=== PATIENT | male | born 1990 | race Caucasian/White ===

== ENCOUNTER 2022-03-15 06:45 | Emergency (ER) | payer BC ==
[~2022-03-15] VITALS: Ht 182.9 cm; Wt 77.7 kg
[2022-03-15] MEDS ORDERED: ONDANSETRON 4MG 2ML VIAL IV ONE (07:40)
[2022-03-15] MEDS ORDERED: PANTOPRAZOLE 40MG VIAL IV ONE (07:40)
[2022-03-15] MEDS ORDERED: NS 1,000 ML IV ONE (07:40)
[2022-03-15 08:13] LABS: BASO # 0.1 10^3/uL (0.0-0.2); BASO % 0.4 % (0.0-1.0); EOS # 0.1 10^3/uL (0.0-0.5); EOS % 0.8 % (0.0-3.0); HEMATOCRIT 42.1 % (42.0-52.0); HEMOGLOBIN 14.3 g/dl (13.5-17.5); LYMPH # 1.1 10^3/uL (1.5-5.0); MEAN CORPUSCULAR HEMOGLOBIN 30.7 pg (27.0-33.0); MEAN CORPUSCULAR VOLUME 90.3 fl (80.0-96.0); MONO # 0.8 10^3/uL (0.0-0.8); MONO % 6.9 % (2.0-8.0); NEUTROPHILS # 9.3 10^3/uL (1.5-8.5); NEUTROPHILS % 81.6 % (36.0-66.0); PLATELET COUNT, AUTOMATED 426 10^3/uL (150-450); RED BLOOD COUNT 4.66 10^6/uL (4.30-6.10); WHITE BLOOD COUNT 11.4 10^3/uL (4.0-10.0)
[2022-03-15 08:57] LABS: ALBUMIN 3.6 GM/DL (3.2-5.2); ALT/SGPT 17 U/L (12-78); BILIRUBIN,TOTAL 0.4 MG/DL (0.2-1.0); BLOOD UREA NITROGEN 17 MG/DL (7-18); CALCIUM LEVEL 9.1 MG/DL (8.5-10.1); CARBON DIOXIDE LEVEL 26 MEQ/L (21-32); CHLORIDE LEVEL 106 MEQ/L (98-107); CREATININE FOR GFR 1.02 MG/DL (0.70-1.30); GLOMERULAR FILTRATION RATE > 60.0 (>60); GLUCOSE, FASTING 109 MG/DL (70-100); LIPASE 63 U/L (73-393); POTASSIUM SERUM 3.9 MEQ/L (3.5-5.1); SODIUM LEVEL 137 MEQ/L (136-145); TOTAL PROTEIN 7.5 GM/DL (6.4-8.2)
[2022-03-15] MEDS ORDERED: GI COCKTAIL 50ML BTL(HYOSCYAMINE/MAALOX/LIDOCAINE VISCOUS)(1:3:1) PO ONE (09:25)
[2022-03-15] MEDS ORDERED: PROT1TAB2 PO (10:30)
[2022-03-15] MEDS ORDERED: ONDA4TAB6 PO (10:30)
[2022-03-15] MEDS ORDERED: CARA1TAB6 PO (10:30)
[2022-03-15 10:35] VITALS: BP 131/61
== END 2022-03-15 11:39 | disposition home or self-care (01) ==
LOC: M ED 06:45
DX: K92.0 Hematemesis (principal); F17.200 Nicotine dependence, unspecified, uncomplicated; F12.10 Cannabis abuse, uncomplicated; Z79.899 Other long term (current) drug therapy
CPT/HCPCS: 80053; 83690; 85025; 86850; 86900; 86901; 96361; 96374; 99284; C9113; J2405

== ENCOUNTER → 2022-05-31 | Outpatient (CLI) | payer BC ==
[~2022-05-31] MED LIST: CARA1TAB6 PO; ONDA4TAB6 PO; PANT40TA29 PO; PROT1TAB2 PO
== END ==
LOC: M LABSMTC 09:52
PROVIDERS: ATTEND Anesthesiology
DX: Z01.818 Encounter for other preprocedural examination (principal)

== ENCOUNTER 2022-06-04 10:34 | Day surgery (SDC) | payer BC ==
[~2022-06-04] VITALS: Ht 177.8 cm; Wt 76.2 kg
[~2022-06-04 10:34] MED LIST changes: +NS 1,000 ML IV ONE
[2022-06-04] MEDS ORDERED: propofoL 200 MG/20 ML VIAL As Ordered ONE (11:20)
[2022-06-04] MEDS ORDERED: LIDOCAINE 2% 100MG/5ML SDV (FOR ANES.) As Ordered ONE (11:20)
[2022-06-04 12:10] VITALS: BP 116/69
== END 2022-06-04 12:20 | disposition home or self-care (01) ==
LOC: M OPP 10:34
PROVIDERS: ATTEND Internal Medicine Gastroenterology
DX: K22.2 Esophageal obstruction (principal); K44.9 Diaphragmatic hernia without obstruction or gangrene; K29.70 Gastritis, unspecified, without bleeding; K92.0 Hematemesis; Z79.899 Other long term (current) drug therapy; F17.200 Nicotine dependence, unspecified, uncomplicated

== ENCOUNTER 2024-01-23 13:53 | Emergency (ER) | payer BC ==
[~2024-01-23] VITALS: Ht 182.9 cm; Wt 77.3 kg
[~2024-01-23 13:53] MED LIST changes: -NS 1,000 ML IV ONE; +ONDA-282 PO; -ONDA4TAB6 PO
[2024-01-23 13:54] VITALS: BP 127/62; TEMP 98.4; O2SAT 98
[2024-01-23] MEDS: LIDOCAINE 2% MDV 20ML VIAL SC ONE (16:15)
[2024-01-23] MEDS: CEPHALEXIN 500 MG CAP PO ONE (16:20)
[2024-01-23] MEDS ORDERED: CEPH500C PO (17:01)
== END 2024-01-23 17:12 | disposition home or self-care (01) ==
LOC: M ED 13:53
DX: S61.211A Laceration without foreign body of left index finger without damage to nail, initial encounter (principal); W26.0XXA Contact with knife, initial encounter; Y92.009 Unspecified place in unspecified non-institutional (private) residence as the place of occurrence of the external cause; Y93.89 Activity, other specified; Y99.9 Unspecified external cause status; Z79.2 Long term (current) use of antibiotics; Z79.899 Other long term (current) drug therapy

== ENCOUNTER 2024-01-25 10:08 | Day surgery (SDC) | payer BC ==
[~2024-01-25] VITALS: Ht 182.9 cm; Wt 65.7 kg
[~2024-01-25 10:08] MED LIST changes: +CEPH500C PO
[2024-01-25] MEDS ORDERED: MIDAZOLAM INJ 2MG/2ML VIAL As Ordered ONE (11:47)
[2024-01-25] MEDS ORDERED: propofoL 200 MG/20 ML VIAL As Ordered ONE (11:48)
[2024-01-25] MEDS ORDERED: ROCURONIUM BROMIDE 50MG/5ML VIAL As Ordered ONE (11:48)
[2024-01-25] MEDS ORDERED: LIDOCAINE 2% 100MG/5ML SDV (FOR ANES.) As Ordered ONE (11:48)
[2024-01-25] MEDS ORDERED: fentaNYL 100 MCG/2 ML INJECTION As Ordered ONE (11:49)
[2024-01-25] MEDS ORDERED: ACETAMINOPHEN 1000MG 100ML IV BAG As Ordered ONE (13:32)
[2024-01-25] MEDS ORDERED: ONDANSETRON 4MG 2ML VIAL As Ordered ONE (13:33)
[2024-01-25] MEDS: ceFAZolin 2 GM/D5W 50 ML IV BAG As Ordered ONE (13:43)
[2024-01-25] MEDS ORDERED: KETOROLAC 60MG 2ML VIAL As Ordered ONE (13:44)
[2024-01-25] MEDS ORDERED: HYDROmorphone HCL 2MG/ML 1ML VIAL As Ordered ONE (13:47)
[2024-01-25] MEDS ORDERED: BACITRACIN OINTMENT 30GM TUBE As Ordered ONE (15:54)
[2024-01-25] MEDS ORDERED: LR 1,000 ML IV SCH (16:05)
[2024-01-25] MEDS ORDERED: fentaNYL 100 MCG/2 ML INJECTION IV PRN (16:05)
[2024-01-25] MEDS ORDERED: PERCOCET PO (16:22)
[2024-01-25] MEDS: oxyCODONE 5MG TAB PO PRN (16:39)
[2024-01-25] MEDS: HYDROMORPHONE HCL 0.5 MG/ 0.5 ML SYRINGE IV PRN (16:40)
[2024-01-25] MEDS: ONDANSETRON 4MG 2ML VIAL IV PRN (16:40)
[2024-01-25 17:42] VITALS: BP 119/69; TEMP 97.3; O2SAT 99
== END 2024-01-25 17:47 | disposition home or self-care (01) ==
LOC: M SDC 10:08
PROVIDERS: ATTEND Orthopaedic Surgery Hand Surgery
DX: S66.121A Laceration of flexor muscle, fascia and tendon of left index finger at wrist and hand level, initial encounter (principal); S61.211A Laceration without foreign body of left index finger without damage to nail, initial encounter; S64.02XA Injury of ulnar nerve at wrist and hand level of left arm, initial encounter; S64.22XA Injury of radial nerve at wrist and hand level of left arm, initial encounter; W26.0XXA Contact with knife, initial encounter; Y93.89 Activity, other specified; Y92.9 Unspecified place or not applicable; F17.200 Nicotine dependence, unspecified, uncomplicated
CPT/HCPCS: 26356; 64910; C1762; J0131; J0665; J0690; J1100; J1170; J1885; J2250; J2405; J3010